=== PATIENT | male | born 1975 | race Caucasian/White ===

== ENCOUNTER 2022-11-19 00:15 | Emergency (ER) | payer MEDICAID ==
[~2022-11-19] VITALS: Ht 185.4 cm; Wt 90.0 kg
[2022-11-19 00:21] VITALS: BP 124/79; PULSE 77; RESP 14; TEMP 98.4; O2SAT 98
[2022-11-19] MEDS ORDERED: ACETAMINOPHEN 325MG TABLET PO STA (00:26)
[2022-11-19] MEDS ORDERED: SODIUM CHLORIDE 0.9% 1,000 ML IV ONE (00:30)
== END 2022-11-19 00:50 | disposition left against medical advice (07) ==
LOC: ER 00:15
DX: R55 Syncope and collapse (principal); I10 Essential (primary) hypertension; Z88.0 Allergy status to penicillin; Z00.00 Encounter for general adult medical examination without abnormal findings; Z53.21 Procedure and treatment not carried out due to patient leaving prior to being seen by health care provider
CPT/HCPCS: 99283; 93005; J7030